=== PATIENT | male | born 1940 | race Caucasian/White ===

== ENCOUNTER 2018-05-18 13:08 | Emergency (ER) | payer MEDICARE ==
[2018-05-18 13:18] VITALS: BP 109/54
--- NOTE | 2018-05-18 13:40 | UC ---
Respiratory Complaint HPI - HPI Summary HPI Summary: Patient presents with past medical history of CAD, HTN, and hypercholesterolemia. He presents with 6 day onset fever, fatigue, malaise, and cough. He states his cough is predominately nonproductive. He reports recorded fevers of 99-101. - History of Current Complaint Chief Complaint: UCGeneralIllness Stated Complaint: URI Time Seen by Provider: 05/18/18 13:24 Hx Obtained From: Patient Onset/Duration: Gradual Onset Timing: Constant Pain Intensity: 0 Character: Cough: Nonproductive Aggravating Factors: Deep Breaths, Recumbent Position Alleviating Factors: Spontaneous Resolution Associated Signs And Symptoms: Positive: URI - Risk Factors Pulmonary Embolism Risk Factors: Negative Cardiac Risk Factors: Hypertension, Elevated Lipids Pseudomonas Risk Factors: Negative Tuberculosis Risk Factors: Negative - Allergies/Home Medications Allergies/Adverse Reactions: Allergies Allergy/AdvReac Type Severity Reaction Status Date / Time No Known Allergies Allergy Verified 05/18/18 13:19 Home Medications: Home Medications Aspirin 81 mg CHEW TAB* [Aspirin Low Dose TAB*] 81 mg PO DAILY 05/18/18 [ History Confirmed 05/18/18] Cholecalciferol (Vitamin D3) [Vitamin D3] 2,000 unit PO DAILY 05/18/18 [History Confirmed 05/18/18] Cyanocobalamin TAB* [Vitamin B12 TAB*] 1,000 mcg PO DAILY 05/18/18 [History Confirmed 05/18/18] Gabapentin CAP(*) [Neurontin 400 mg CAP(*)] 800 mg PO BID 05/18/18 [History Confirmed 05/18/18] Losartan TAB* [Cozaar TAB*] 25 mg PO DAILY 05/18/18 [History Confirmed 05/18/18] Metoprolol Succinate [Metoprolol Succinate ER] 25 mg PO DAILY 05/18/18 [History Confirmed 05/18/18] Multivitamin [Multivitamins] 1 cap PO DAILY 05/18/18 [History Confirmed 05/18/18 ] Wrights-3S/Dha/Epa/Fish Oil [Fish Oil 1,200 mg Softgel] 1 each PO DAILY 05/18/18 [ History Confirmed 05/18/18] Rosuvastatin (NF) [Crestor (NF)] 20 mg PO QPM 05/18/18 [History Confirmed ] PMH/Surg Hx/FS Hx/Imm Hx Previously Healthy: Yes Endocrine History: Dyslipidemia Cardiovascular History: Cardiac Disease, Hypertension - Surgical History Surgical History: Yes Surgery Procedure, Year, and Place: quadruple bypass; left leg vein scraped. right collar bone fx w/ repair - Family History Known Family History: Positive: Cardiac Disease - Social History Occupation: Retired Lives: Alone Alcohol Use: Daily Alcohol Amount: 1-2 glass of wine HS Substance Use Type: None Smoking Status (MU): Former Smoker When Did the Patient Quit Smoking/Using Tobacco: 1977 - Immunization History Most Recent Influenza Vaccination: 2014 Review of Systems Constitutional: Negative Skin: Negative Eyes: Negative ENT: Negative Respiratory: Cough Cardiovascular: Negative Gastrointestinal: Negative Genitourinary: Negative Motor: Negative Neurovascular: Negative Musculoskeletal: Negative Neurological: Negative Psychological: Negative Is Patient Immunocompromised?: No All Other Systems Reviewed And Are Negative: Yes Physical Exam Triage Information Reviewed: Yes Vital Signs: Initial Vital Signs Temp 97 F 05/18/18 13:12 Pulse 78 05/18/18 13:12 Resp 16 05/18/18 13:12 BP 109/54 05/18/18 13:12 Pulse Ox 97 05/18/18 13:12 Vital Signs Reviewed: Yes Eye Exam: Normal ENT Exam: Normal Neck exam: Normal Neck: Positive: 1 Respiratory: Positive: Crackles, Rhonchi Cardiovascular Exam: Normal Abdominal Exam: Normal Musculoskeletal Exam: Normal Neurological Exam: Normal Psychological Exam: Normal Skin Exam: Normal UC Diagnostic Evaluation - Laboratory O2 Sat by Pulse Oximetry: 97 Respiratory Course/Dx - Course Course Of Treatment: Patient presents with a past medical history of CAD, HTN and hyperlipidemia. He presents with 6 days of cough and fever. VSS as the time of his exam and he was afebrile. However he did hae some adventitious lung sounds and given his advanced age, comorbidities and six days of upper respiratory symtpoms I feel he warrents treatement with antiobitics. I also told him he needed for follow up with his PCP this week. He verbalized understanding and in agreement with the discharge plan. - Differential Dx/Diagnosis Differential Diagnosis/HQI/PQRI: Other - URI Provider Diagnoses: URI Discharge - Sign-Out/Discharge Documenting (check all that apply): Patient Departure All imaging exams completed and their final reports reviewed: No Studies - Discharge Plan Condition: Stable Disposition: HOME Prescriptions: DOXYcycline CAP(*) [DOXYcycline 100MG CAP(*)] 100 mg PO BID #20 cap Patient Education Materials: Upper Respiratory Infection (DC) Referrals: Mony Barron MD [Primary Care Provider] - - Billing Disposition and Condition Condition: STABLE Disposition: Home - Attestation Statements Document Initiated by Scribe: No
== END 2018-05-18 14:00 | disposition home or self-care (01) ==
LOC: UCEAST 13:08
DX: J06.9 Acute upper respiratory infection, unspecified (principal); I25.10 Atherosclerotic heart disease of native coronary artery without angina pectoris; I10 Essential (primary) hypertension; E78.5 Hyperlipidemia, unspecified; Z79.82 Long term (current) use of aspirin; Z79.899 Other long term (current) drug therapy; Z87.891 Personal history of nicotine dependence
CPT/HCPCS: 99212; G0463

== ENCOUNTER 2018-12-19 10:11 | Emergency (ER) | payer MEDICARE ==
[2018-12-19 10:20] VITALS: BP 133/62
--- NOTE | 2018-12-19 10:42 | UC ---
Skin Complaint HPI - HPI Summary HPI Summary: 78 yo male presents with rash to left upper chest. He tells me that 1 week ago he was bitten by a tick - unsure how long it was attached, thinks it may have been around 72 hours or around a day at least. He had a rash around the tick, but removed the tick. Since that time has noticed a spreading red rash. States he feels well otherwise and denies fever, chills, fatigue, aches, itch to the rash, or pain. - History of Current Complaint Chief Complaint: UCSkin Time Seen by Provider: 12/19/18 10:41 Stated Complaint: TICK BITE/LTUPPERCHEST Hx Obtained From: Patient Onset/Duration: Gradual Onset Current Severity: None Pain Intensity: 0 Pain Scale Used: 0-10 Numeric - Allergy/Home Medications Allergies/Adverse Reactions: Allergies Allergy/AdvReac Type Severity Reaction Status Date / Time No Known Allergies Allergy Verified 12/19/18 10:14 PMH/Surg Hx/FS Hx/Imm Hx Endocrine History: Dyslipidemia Cardiovascular History: Cardiac Disease, Hypertension - Surgical History Surgical History: Yes Surgery Procedure, Year, and Place: quadruple bypass; left leg vein scraped. right collar bone fx w/ repair - Family History Known Family History: Positive: Cardiac Disease - Social History Occupation: Retired Lives: With Family Alcohol Use: Daily Alcohol Amount: 1-2 glass of wine HS Substance Use Type: None Smoking Status (MU): Former Smoker When Did the Patient Quit Smoking/Using Tobacco: 1977 - Immunization History Most Recent Influenza Vaccination: 2014 Review of Systems All Other Systems Reviewed And Are Negative: Yes Constitutional: Positive: Negative Skin: Positive: Rash Respiratory: Positive: Negative Cardiovascular: Positive: Negative Gastrointestinal: Positive: Negative Neurovascular: Positive: Negative Neurological: Positive: Negative Psychological: Positive: Negative Physical Exam - Summary Physical Exam Summary: GENERAL: NAD. WDWN. No pain distress. SKIN: LEFT UPPER CHEST: Large area of flat erythema from left inferior breast to top of left shoulder. NTTP. No open wound, warmth, edema, drainage, or pustules. No classic "bull's eye". NECK: Supple. Nontender. No lymphadenopathy. CHEST: No accessory muscle use. Breathing comfortably and in no distress. CV: Pulses intact. Cap refill <2seconds NEURO: Alert. PSYCH: Age appropriate behavior. Triage Information Reviewed: Yes Vital Signs: Initial Vital Signs Temp 97 F 12/19/18 10:14 Pulse 69 12/19/18 10:14 Resp 16 12/19/18 10:14 BP 133/62 12/19/18 10:14 Pulse Ox 99 12/19/18 10:14 Vital Signs Reviewed: Yes Images Front/Back of Body, Lg ([place]): 1 - Rash Course/Dx - Course Course Of Treatment: Discussed with Dr. Strong. Appears most consistent with EM rash. Given this and his recent tick bite - will treat with doxycycline for lyme. - Diagnoses Provider Diagnosis: ECM (erythema chronicum migrans) Discharge - Sign-Out/Discharge Documenting (check all that apply): Patient Departure All imaging exams completed and their final reports reviewed: No Studies - Discharge Plan Condition: Stable Disposition: HOME Prescriptions: DOXYcycline CAP(*) [DOXYcycline 100MG CAP(*)] 100 mg PO BID #42 cap Patient Education Materials: Doxycycline (By mouth), Lyme Disease (ED), Tick Bite (ED) Referrals: Mony Barron MD [Primary Care Provider] - Additional Instructions: If you develop a fever, shortness of breath, chest pain, new or worsening symptoms - please call your PCP or go to the ED immediately. - Billing Disposition and Condition Condition: STABLE Disposition: Home
--- NOTE | 2018-12-19 11:15 | CONSULT ---
Consult Consult: I supervised the care of the physician assistant passenger locomotive engineer and I performed a history and physical on this patient. History: Tick bite with tick removed at home that was engorged. Now area of expanding redness in the shoulder which was site of attachment. Physical exam: Well-appearing patient without fever. Nontender, homogenous, large, sharply demarcated area of erythema surrounding the bite and the anterior shoulder. Plan: Rash consistent with erythema chronicum migrans. Treat as Lyme disease.
== END 2018-12-19 11:30 | disposition home or self-care (01) ==
LOC: UCEAST 10:11
DX: A69.20 Lyme disease, unspecified (principal); Z87.891 Personal history of nicotine dependence; I10 Essential (primary) hypertension
CPT/HCPCS: 99212; G0463

== ENCOUNTER 2019-01-05 16:08 | Emergency (ER) | payer MEDICARE ==
--- NOTE | 2019-01-05 16:15 | UC ---
Skin Complaint HPI - HPI Summary HPI Summary: 78 y/o male presents to the urgent care c/o red raised rash to bilateral arms and face since Sunday evening after hike in the morning. Areas are dry, red, scaling and Burning. Pt has been taking DOXYCYCLINE PO for the past 18 days for prophylactic treatment for possible Lyme. He still have 3 more day to finish Doxycycline PO. Rash is not painful or itchiness, it just have a burning sensation. Pt denies fever, blisters, SOB, chest pain, throat tightening , chest pain, abdominal pain, N/V/D. He also states while taking the antibiotic he removed another eng[place] tick bite form his posterior left knee - History of Current Complaint Time Seen by Provider: 01/05/19 16:14 Stated Complaint: RASH ON ARMS Hx Obtained From: Patient Onset/Duration: Gradual Onset, Lasting Days - 2 days, Still Present, Worse Since - today w/ a burninbg sensation Skin Exposure Onset/Duration: Days Ago - 2 days ago went hiking at [employer] at [place] Timing: Constant Onset Severity: Mild Current Severity: Mild Pain Intensity: 0 Pain Scale Used: 0-10 Numeric Location: Discrete - face, B/L arms redness w/ a burining sensation and scaling Character: Redness Aggravating Factor(s): Touch Alleviating Factor(s): Nothing Associated Signs & Symptoms: Positive: Rash - B/L arms and face redness w/ a burning sensation and scaling. Negative: Difficulty Breathing, Fever, Chills, Chest Pain, Hoarseness, Throat Tightening Related History: Possible Reaction to: Environmental Exposure - Allergy/Home Medications Allergies/Adverse Reactions: Allergies Allergy/AdvReac Type Severity Reaction Status Date / Time No Known Allergies Allergy Verified 01/05/19 16:27 PMH/Surg Hx/FS Hx/Imm Hx Previously Healthy: Yes Endocrine History: Dyslipidemia Cardiovascular History: Cardiac Disease, Hypertension - Surgical History Surgical History: Yes Surgery Procedure, Year, and Place: quadruple bypass; left leg vein scraped. right collar bone fx w/ repair - Family History Known Family History: Positive: Cardiac Disease, Hypertension - Social History Occupation: Retired Lives: With Family Alcohol Use: Daily Alcohol Amount: 1-2 glass of wine HS Substance Use Type: None Smoking Status (MU): Former Smoker When Did the Patient Quit Smoking/Using Tobacco: 1977 - Immunization History Most Recent Influenza Vaccination: 2014 Review of Systems All Other Systems Reviewed And Are Negative: Yes Constitutional: Positive: Negative Skin: Positive: Rash - B/L arms and face w/ a scaling rash w. burbning sensation Eyes: Positive: Negative ENT: Positive: Negative Respiratory: Positive: Negative Cardiovascular: Positive: Negative Gastrointestinal: Positive: Negative Genitourinary: Positive: Negative Motor: Positive: Negative Neurovascular: Positive: Negative Musculoskeletal: Positive: Negative Neurological: Positive: Negative Psychological: Positive: Negative Is Patient Immunocompromised?: No Physical Exam - Summary Physical Exam Summary: Vital Signs Reviewed: Yes General: well appearing, well nourished in no acute apparent pain distress, sitting comfortably on examining table Eye Exam: Normal Eyes: Positive: Conjunctiva Clear - PERRLA< EOMI, fundi grossly normal ENT: Positive: Normal ENT inspection, Hearing grossly normal, Pharynx normal, TMs normal Neck: Positive: Supple, Nontender, No Lymphadenopathy Respiratory: Positive: Chest non-tender, Lungs clear, Normal breath sounds, No respiratory distress Cardiovascular: Positive: RRR, No Murmur, Pulses Normal, Brisk Capillary Refill Abdomen Description: Positive: Nontender, No Organomegaly, Soft. Negative: CVA Tenderness (R), CVA Tenderness (L) Bowel Sounds: Positive: Present Musculoskeletal: Positive: Strength Intact, ROM Intact, No Edema Neurological: Positive: Alert, Muscle Tone Normal Psychological Exam: Normal Skin: Positive: Positive erythematous patch w/ indistinct borders, warm and tender to palpation, no drainage observed. pulses WNL, capillary refill brisk, sensation WNL. Triage Information Reviewed: Yes Course/Dx - Course Course Of Treatment: 78 y/o male presents to the urgent care c/o red raised rash to bilateral arms and face since Sunday evening after hike in the morning. Areas are dry, red, scaling and Burning. Pt has been taking DOXYCYCLINE PO for the past 18 days for prophylactic treatment for possible Lyme. He still have 3 more day to finish Doxycycline PO. Rash is not painful or itchiness, it just have a burning sensation. Pt denies fever, blisters, SOB, chest pain, throat tightening , chest pain, abdominal pain, N/V/D. He also states while taking the antibiotic he removed another engorge tick bite form his posterior left knee. Hx obtained. - Differential Diagnoses - Skin Complaint Differential Diagnoses: Abscess, Cellulitis, Contact Dermatitis, Local Allergic Reaction, MRSA, Poison María, Poison [place], Tick Born Illness, Urticaria, Other - photosensitity reaction w/ doxycycline - Diagnoses Provider Diagnosis: Photosensitivity dermatitis, Uncontrolled hypertension Discharge - Sign-Out/Discharge Documenting (check all that apply): Patient Departure - D/C home All imaging exams completed and their final reports reviewed: No Studies - Discharge Plan Condition: Stable Disposition: HOME Prescriptions: Calamine/Pramoxine LOTION* [Caladryl LOTION*] 1 applic .SEE ORDER BID #1 btl Patient Education Materials: Photosensitivity (ED) Referrals: Mony Barron MD [Primary Care Provider] - 2 Days Celina Velázquez [Medical Doctor] - 1 Day Additional Instructions: 1-Please apply Caladryl topical lotion as directed to alleviate symptoms. 2- Stop taking Doxycycline PO since you already took 18 days of treatment. Lyme serology screening was sent to lab, you will be notified of any results. 3-Please avoid sun exposure until rash resolves since I think your rash is a photosensitivity reaction w/ the Doxycycline. Use sun screen 4-Please f/u your appt w/ [facility] Dr Velázquez tomorrow for further evaluation and treatment. 5-Your BP is elevated today. please decrease salt in your diet, monitor BP and if it continues to be elevated please f/u with your PCP for further management. - Billing Disposition and Condition Condition: STABLE Disposition: Home
[2019-01-05 16:27] VITALS: BP 153/70
--- NOTE | 2019-01-08 10:07 | UC ---
- Progress Note Progress Note: Lyme screen positive. Western blot pending. Patient already received course of doxycycline to treat for Lyme. Course/Dx - Diagnoses Provider Diagnoses: Photosensitivity dermatitis, Uncontrolled hypertension Discharge - Sign-Out/Discharge Documenting (check all that apply): Post-Discharge Follow Up All imaging exams completed and their final reports reviewed: No Studies - Discharge Plan Condition: Stable Disposition: HOME Prescriptions: Calamine/Pramoxine LOTION* [Caladryl LOTION*] 1 applic .SEE ORDER BID #1 btl Patient Education Materials: Photosensitivity (ED) Referrals: Mony Barron MD [Primary Care Provider] - 2 Days Celina Velázquez [Medical Doctor] - 1 Day Additional Instructions: 1-Please apply Caladryl topical lotion as directed to alleviate symptoms. 2- Stop taking Doxycycline PO since you already took 18 days of treatment. Lyme serology screening was sent to lab, you will be notified of any results. 3-Please avoid sun exposure until rash resolves since I think your rash is a photosensitivity reaction w/ the Doxycycline. Use sun screen 4-Please f/u your appt w/ Dr[facility] Dr Velázquez tomorrow for further evaluation and treatment. 5-Your BP is elevated today. please decrease salt in your diet, monitor BP and if it continues to be elevated please f/u with your PCP for further management. - Billing Disposition and Condition Condition: STABLE Disposition: Home
== END 2019-01-05 17:05 | disposition home or self-care (01) ==
LOC: UCEAST 16:08
DX: L30.8 Other specified dermatitis (principal); I10 Essential (primary) hypertension; E78.5 Hyperlipidemia, unspecified; Z87.891 Personal history of nicotine dependence
CPT/HCPCS: 36415; 86617; 86618; 99212; G0463